=== PATIENT | male | born 1980 | race Caucasian/White ===

== ENCOUNTER 2016-07-22 16:16 | Emergency (ER) | payer OTHER ==
[2016-07-22 17:11] LABS: HGB 15.5 g/dl (13.2-18.0)
[2016-07-22 17:12] LABS: HCT 44.2 % (42.0-52.0); MCHC 35.1 g/dL (32.0-36.0); MCV 88.4 fL (78.0-100.0); PLT 213 K/uL (150-400)
[2016-07-22 17:15] LABS: WBC 8.2 K/uL (4.0-10.5)
[2016-07-22 17:25] LABS: ALBUMIN 4.5 g/dL (3.5-5.0); BILIRUBIN - TOTAL 0.3 mg/dL (0.1-1.0); CREATININE 1.1 mg/dL (0.7-1.2); POTASSIUM 4.4 mmol/L (3.5-5.1); TOTAL PROTEIN 6.5 g/dL (6.4-8.3)
== END 2016-07-22 18:25 | disposition home or self-care (01) ==
LOC: FER 16:16
PROVIDERS: Nurse Practitioner
DX: I10 Essential (primary) hypertension (principal); I25.2 Old myocardial infarction; F17.210 Nicotine dependence, cigarettes, uncomplicated; Z88.0 Allergy status to penicillin; Z88.1 Allergy status to other antibiotic agents; Z87.442 Personal history of urinary calculi
CPT/HCPCS: 36415; 80053; 84484; 85025; J1885

== ENCOUNTER 2016-08-31 00:50 | Emergency (ER) | payer OTHER ==
[2016-08-31 01:32] LABS: BASOPHIL 0.6 % (0-2); EOSINOPHIL 3.3 % (0-5); HCT 41.7 % (42.0-52.0); LYMPHOCYTE 32.2 % (15-48); MCH 31.6 pg (25.0-31.0); MCV 87.8 fL (78.0-100.0); MPV 9.7 fL (6.0-9.5); NEUTROPHIL 58.9 % (41-80); PLT 236 K/uL (150-400); RBC 4.75 M/uL (4.70-6.00); RDW 13.6 % (11.5-14.0); WBC 8.2 K/uL (4.0-10.5)
[2016-08-31 01:52] LABS: ALBUMIN 4.5 g/dL (3.5-5.0); BILIRUBIN - TOTAL 0.3 mg/dL (0.1-1.0); CREATININE 1.1 mg/dL (0.7-1.2); GLOBULIN (CALCULATION) 2.1 g/dL (2.2-4.2); POTASSIUM 4.1 mmol/L (3.5-5.1); TOTAL PROTEIN 6.6 g/dL (6.4-8.3)
== END 2016-08-31 02:15 | disposition home or self-care (01) ==
LOC: FER 00:50
PROVIDERS: Emergency Medicine
DX: R07.89 Other chest pain (principal); I10 Essential (primary) hypertension; R42 Dizziness and giddiness; Z95.5 Presence of coronary angioplasty implant and graft; Z79.899 Other long term (current) drug therapy
CPT/HCPCS: 36415; 71010; 80053; 84484; 85025; 93005